=== PATIENT | female | born 1960 | race Caucasian/White ===

== ENCOUNTER 2017-02-02 07:52 | Emergency (ER) | payer MEDICARE, OTHER ==
[~2017-02-02] VITALS: Ht 154.9 cm; Wt 72.6 kg
[2017-02-02] MEDS ORDERED: TOPAMAX (08:11)
[2017-02-02] MEDS ORDERED: METFORMIN (08:11)
[2017-02-02] MEDS ORDERED: LAMICTAL (08:11)
--- NOTE | 2017-02-02 09:07 | NUR ---
pt left w/o being seen by , at approx 0820 stated she was going to her car and did noty return. dr gerardo notified.
== END 2017-02-02 09:00 | disposition left against medical advice (07) ==
LOC: ER 07:52
DX: Z53.21 Procedure and treatment not carried out due to patient leaving prior to being seen by health care provider (principal)
CPT/HCPCS: A4663